=== PATIENT | female | born 1950 | race Caucasian/White ===

== ENCOUNTER 2017-07-21 17:34 | Inpatient (IN) | payer MEDICARE ==
[~2017-07-21] VITALS: Ht 160 cm; Wt 68.1 kg
[~2017-07-21 17:34] MED LIST: ACYC-114 PO; ALEN35TA6 PO; ASCO100072 PO; ATOR10TA9 PO; CALC-141 PO; CYCL100C12 PO; GANC5GEL OP; KETO1DRO RIGHTEYE; MAGN400T7 PO; MYCO360T PO; NICO-486 TD; ONDA8TAB12 PO; OXYC5TAB3 PO; PANT40TA5 PO; POLY17PO5 PO; POSA100T PO; POTA20TA14 PO; PRED1DRO RIGHTEYE; PRED20TA PO; PRED5DRO2 RIGHTEYE; PROC10TA78 PO; SULF1TAB24 PO; URSO300C27 PO; VALA1000 PO; VALG450T PO
[2017-07-21] MEDS ORDERED: SODIUM CHLORIDE 0.9% 1,000 ML IV ONE (17:36)
[2017-07-21] MEDS ORDERED: SODIUM CHLORIDE FLUSH 10ML SYR IVF ONE (18:00)
[2017-07-21] MEDS ORDERED: ALBUTEROL/IPRATROPIUM 2.5MG/0.5MG, 3 ML NPPB ONE (18:00)
[2017-07-21] MEDS ORDERED: ALBUTEROL/IPRATROPIUM 2.5MG/0.5MG, 3 ML ONE ×2 (18:06→19:21)
[2017-07-21 18:14] LABS: ASPARTATE AMINO TRANSFERASE 23 U/L (15-37); BLOOD UREA NITROGEN 45 mg/dL (7-18)
[2017-07-21 18:20] LABS: IS PT STATUS REG ER OR PRE ER? YES
[2017-07-21] MEDS ORDERED: methylPREDNISolone SOD SUCC 125 MG/2 ML ONE (18:24)
[2017-07-21 18:25] LABS: DIFF TOTAL CELLS COUNTED 100 CELL DIFF; WHITE BLOOD COUNT 5.1 x10^3/uL (3.4-10)
[2017-07-21] MEDS ORDERED: AZITHROMYCIN 500 MG in SODIUM CHLORIDE 0.9% 250 ML IV ONE (18:30)
[2017-07-21] MEDS ORDERED: methylPREDNISolone SOD SUCC 125 MG/2 ML IVPush ONE (18:30)
[2017-07-21 18:35] LABS: HEMATOCRIT 19.1 % (34.6-47.8); HEMOGLOBIN 6.6 g/dL (11.7-16.4)
[2017-07-21 18:41] LABS: ANISOCYTOSIS 1+; HYPOCHROMIA 1+; MICROCYTOSIS 1+; OVALOCYTES 1+; POIKILOCYTOSIS 1+; POLYCHROMASIA 1+; VERIFY COUNTS? YES
[2017-07-21 18:42] LABS: LARGE PLATELETS 1+
[2017-07-21] MEDS ORDERED: CEFTAZIDIME PMX 2 GM/50ML 50 ML IV ONE (19:30)
[2017-07-21] MEDS ORDERED: ONDANSETRON ODT 4 MG PO PRN (21:30)
[2017-07-21] MEDS ORDERED: morphine SULFATE 10 MG/ML, 1ML IVPush PRN (21:30)
[2017-07-21] MEDS ORDERED: ENALAPRILAT 1.25 MG/ML, 2ML IVPush PRN (21:30)
[2017-07-21] MEDS ORDERED: POLYETHYLENE GLYCOL 17 GM PACKET PO PRN (21:30)
[2017-07-21] MEDS ORDERED: TEMAZEPAM 15 MG CAPSULE PO PRN (21:30)
[2017-07-21] MEDS ORDERED: ACETAMINOPHEN 325 MG TABLET PO PRN (21:30)
[2017-07-21] MEDS ORDERED: HYDROcodone/APAP 5/325 TABLET PO PRN (21:30)
[2017-07-21 21:39] VITALS: BP 100/63
[2017-07-21] MEDS ORDERED: SULFAMETH./TRIMETHOPRIM DS 800MG/160MG TABLET PO SCH (22:00)
[2017-07-21] MEDS ORDERED: ENOXAPARIN 40 MG/0.4 ML SQ SCH (22:00)
[2017-07-21 23:06] VITALS: BP 95/56
[2017-07-21 23:15] VITALS: BP 103/64
[2017-07-21 23:16] VITALS: BP 103/64
[2017-07-21] MEDS ORDERED: AMLO5TAB4 PO (23:54)
[2017-07-22] VITALS (10 sets, daily range): BP systolic 105–143; BP diastolic 63–86
[2017-07-22] MEDS: CYCLOSPORINE 25 MG PO SCH ×2 (00:11→09:09)
[2017-07-22 00:38] LABS: IS PT STATUS REG ER OR PRE ER? YES
[2017-07-22] MEDS: methylPREDNISolone SOD SUCC 125 MG/2 ML IVPush SCH ×3 (01:24→12:57)
[2017-07-22 07:13] LABS: BLOOD UREA NITROGEN 42 mg/dL (7-18)
[2017-07-22 07:15] LABS: IS PT STATUS REG ER OR PRE ER? NO
[2017-07-22 08:13] LABS: HEMATOCRIT 25.8 % (34.6-47.8); HEMOGLOBIN 9.1 g/dL (11.7-16.4); WHITE BLOOD COUNT 2.6 x10^3/uL (3.4-10)
[2017-07-22] MEDS ORDERED: URSODIOL 300 MG CAPSULE PO SCH ×3 (09:00→10:00)
[2017-07-22] MEDS ORDERED: POSACONAZOLE 200 MG/5 ML ORAL SUSP PO SCH (09:00)
[2017-07-22] MEDS ORDERED: VALGANCICLOVIR 450MG TABLET PO SCH (09:00)
[2017-07-22] MEDS ORDERED: ACYC-114 PO (09:12)
[2017-07-22] MEDS ORDERED: ACYCLOVIR 200 MG CAPSULE PO SCH (09:30)
[2017-07-22 09:47] LABS: RAPID INFLUENZA A Negative (Negative); RAPID INFLUENZA B Negative (Negative)
[2017-07-22] MEDS ORDERED: PRED5TAB PO (10:20)
[2017-07-22] MEDS ORDERED: PANTOPROZOLE 40MG TABLET PO SCH (11:00)
[2017-07-26 22:06] LABS: ADENOVIRUS PCR Negative (Negative); INFLUENZA A PCR Negative (Negative); INFLUENZA B PCR Negative (Negative); METAPNEUMOVIRUS PCR Negative (Negative); PARAINFLUENZA 1 PCR Negative (Negative); PARAINFLUENZA 2 PCR Negative (Negative); PARAINFLUENZA 3 PCR Negative (Negative); RESP SYNCYTIAL VIRUS A PCR Negative (Negative); RESP SYNCYTIAL VIRUS B PCR Negative (Negative); RHINOVIRUS PCR Negative (Negative)
== END 2017-07-22 15:08 | disposition home health service (06) | DRG 189 ==
LOC: ED 17:38 → 5SO 21:34 → ED 07-22 08:54 → 5SO 07-22 08:55 → DCLOUNGE 07-22 14:20
PROVIDERS: ADMIT Hospitalist; ATTEND Family Medicine
PROC: 30233N1 Transfusion of Nonautologous Red Blood Cells into Peripheral Vein, Percutaneous Approach (ICD-10-PCS; principal; 2017-07-22)
PROC: 30233R1 Transfusion of Nonautologous Platelets into Peripheral Vein, Percutaneous Approach (ICD-10-PCS; 2017-07-22)
DX: J96.01 Acute respiratory failure with hypoxia (principal); J18.9 Pneumonia, unspecified organism; D89.813 Graft-versus-host disease, unspecified; Z94.81 Bone marrow transplant status; I95.9 Hypotension, unspecified; D69.6 Thrombocytopenia, unspecified; J44.0 Chronic obstructive pulmonary disease with (acute) lower respiratory infection; J44.1 Chronic obstructive pulmonary disease with (acute) exacerbation; D63.0 Anemia in neoplastic disease; D46.9 Myelodysplastic syndrome, unspecified; N18.9 Chronic kidney disease, unspecified; Z87.891 Personal history of nicotine dependence; Z88.8 Allergy status to other drugs, medicaments and biological substances
CPT/HCPCS: 36415; 71010; 80048; 80053; 80158; 83605; 83880; 84484; 85025; 86756; 86850; 86900; 86923; 87040; 87400; 87633; 93005; 94640; 96365; J0456; J1650; J7620; J0713; J2930; J7030; J7050; J7515; P9037; P9040

== ENCOUNTER → 2017-10-27 | Outpatient (CLI) | payer MEDICARE ==
[~2017-10-27] MED LIST changes: +AMLO5TAB4 PO; +LEVO250T23 PO; +POTA10TA PO; +PRED5TAB PO
== END | disposition home or self-care (01) ==
LOC: RAD 12:36
PROVIDERS: ATTEND Internal Medicine
DX: Z51.11 Encounter for antineoplastic chemotherapy (principal); R07.9 Chest pain, unspecified; D70.9 Neutropenia, unspecified; D69.6 Thrombocytopenia, unspecified; D64.9 Anemia, unspecified
CPT/HCPCS: 71046